=== PATIENT | male | born 1970 | race Asian ===

== ENCOUNTER → 2023-12-26 06:27 | Day surgery (SDC) | payer BC, SELFPAY ==
[2023-12-26 07:34] LABS: Glucose - Point of Care 116 mg/dl (70-99)
== END ==
LOC: GI 06:27
PROVIDERS: ATTENDING PHYSICIAN Internal Medicine Gastroenterology
DX: D12.2 Benign neoplasm of ascending colon (principal); R19.4 Change in bowel habit; K64.8 Other hemorrhoids
CPT/HCPCS: 45385; 88305; 82962

== ENCOUNTER 2024-09-01 20:55 | Inpatient (IN) | payer BC, SELFPAY ==
[2024-09-01 16:42] VITALS: BMI 21.3
[2024-09-01 16:52] VITALS: BP 144/87
[2024-09-01 17:08] LABS: % Basophils 0.3 % (0-2); % Eosinophils 1.2 % (0-6); % Immature Granulocytes 0.5 % (0-0.5); % Lymphocytes 16.3 % (20.5-51.1); % Monocytes 8.2 % (1.7-9.3); % Neutrophils 73.5 % (42.2-75.2); Absolute Eosinophils 0.1 10^3/uL (0-0.7); Absolute Immature Granulocytes 0.1 10^3/uL (0-0.05); Absolute Lymphocytes 1.8 10^3/uL (1.2-3.4); Absolute Monocytes 0.9 10^3/uL (0.1-0.6); Absolute Neutrophils 7.9 10^3/uL (1.4-6.5); Hematocrit 35.8 % (39.0-52.0); Hemoglobin 11.8 g/dL (13.0-18.0); Mean Corpuscular Hgb 31.3 pg (27.0-31.0); Mean Platelet Volume 9.6 fL (7.4-10.4); Nucleated Red Blood Cells % 0 % (-); Platelet Count 350 10^3/uL (130-400); Red Blood Cell Count 3.77 10^6/uL (4.70-6.10); Red Cell Dist. Width 12.1 % (11.5-14.5); White Blood Cell Count 10.8 10^3/uL (4.8-10.8)
[2024-09-01 17:34] LABS: ALT (SGPT) 38 U/L (0-50); AST (SGOT) 25 U/L (17-59); Albumin 4.9 g/dl (3.5-5.0); Alkaline Phosphatase 70 U/L (38-126); Blood Urea Nitrogen 20 mg/dl (9-20); Calcium 9.7 mg/dl (8.4-10.2); Carbon Dioxide 33 mmol/L (22-30); Glucose 93 mg/dl (70-99); Total Bilirubin 0.5 mg/dl (0.2-1.3); Total Protein 8.2 g/dl (6.3-8.2); eGFR > 60.00
[2024-09-01 17:51] LABS: Chloride 97 mmol/L (98-107); Potassium 4.5 mmol/L (3.5-5.1); Sodium 138 mmol/L (135-145)
[2024-09-01 19:08] VITALS: BP 154/80
--- NOTE | 2024-09-01 19:18 | ED.GENMED ---
History of Present Illness
General
Chief Complaint: Skin Problem
Source: patient and records
Time Seen by Provider: 09/01/24 18:44
History of Present Illness
History of Present Illness:
54-year-old male with past medical history of hypertension, hyperlipidemia, insulin-dependent diabetes and chronic peripheral neuropathy presenting to the ER at the request of his history instructor, Dr. Hurst, for evaluation and admission after he
started with a wound on the plantar surface of the right foot Saturday, has gotten acutely worse, more erythematous and painful. Patient went to the office today and was recommended to come to the ER for admission, IV antibiotics, further advanced
imaging and potential OR if needed. Patient states that his blood sugars have been under control recently with his last hemoglobin A1c being 6.5 about 2 months ago. He denies any fevers, chills, rigors and states pain at rest is tolerable.
Past History
Past History
ED Past Medical History: HTN, Hypercholesterolemia, IDDM, NIDDM and Other
ED Past Surgical History: Appendectomy
Patient has exhibited threatening behavior?: No
Social History
Tobacco: Former smoker
Alcohol: None
Drug: None
Personal:
Living: with family
Employment: Employed
Review of Systems
Review of Systems
All Other Systems: ROS reviewed and negative except as documented in HPI and ROS
Phy Exam
Physical Exam
Physical Exam:
GENERAL: Alert , in no apparent distress
EYE: conjunctiva clear
Head: Normocephalic atraumatic
NECK: Supple,
ENT: mmm.
LUNGS: no acute respiratory distress
NEUROLOGICAL: Alert and oriented
SKIN: Warm and dry, large dressing in place overlying the fourth toe. There is streaking erythema up the midfoot going towards the ankle along the lateral aspect of the foot. Easily palpable pedal and tibial pulse. Cap refill less than 2 seconds.
MUSCULOSKELETAL: well perfused.
PSYCH: Normal and appropriate interaction.
Scores
Heart Failure Risk
Heart Failure Risk Score: Not Applicable
Heart Score for Chest Pain Patients
STEMI patient?: Not applicable
Withdrawal Assessment of Alcohol
Withdrawal Assessment Completed?: Not applicable
Course
Orders/Labs/Results
Orders:
Orders
09/01/24 16:56
CR Foot - Right Min 3 Views Urgent
Comment:
Reason For Exam: infection/pain
09/01/24 16:59
C-Reactive Protein Urgent
Comment: ADD ON
Complete Blood Count/With Diff Urgent
Comprehensive Metabolic Panel Urgent
Erythrocyte Sed Rate Urgent
Comment: ADD ON
09/01/24 18:56
Add On- LAB Urgent
Tests Added?: ESR/CRP
09/01/24 19:04
Piperacillin/Tazo 3.375 Gram [Zosyn] 3.375 gram in 50 ml IV NOW
09/01/24 19:27
Blood Culture Q30M
EMELYN Source: Blood/Venous
Specimen Description:
Blood Culture Q30M
EMELYN Source: Blood/Venous
Specimen Description:
09/01/24 20:05
Vancomycin [Vancocin] 1,500 mg 0.9% Sodium Chloride 500 ml [Nss] 500 ml IV NOW
Abnormal Lab Results
09/01/24
16:59
RBC 3.77 L 10^6/uL
(4.70-6.10)
Hgb 11.8 L g/dL
(13.0-18.0)
Hct 35.8 L %
(39.0-52.0)
MCV 95.0 H fL
(80.0-94.0)
MCH 31.3 H pg
(27.0-31.0)
Abs Immat Gran (auto) 0.1 H 10^3/uL
(0-0.05)
Absolute Neuts (auto) 7.9 H 10^3/uL
(1.4-6.5)
Absolute Monos (auto) 0.9 H 10^3/uL
(0.1-0.6)
Lymphocytes % 16.3 L %
(20.5-51.1)
ESR 57 H mm/hour
(0-20)
Chloride 97 L mmol/L
(98-107)
Carbon Dioxide 33 H mmol/L
(22-30)
C-Reactive Protein 134.40 H mg/L
(0.0-10.00)
09/01/24 16:59
09/01/24 16:59
Vital Signs
Initial and Last Documented VS:
Initial Vital Signs
Temp Pulse Resp BP Pulse Ox
99.8 F 90 16 144/87 100
09/01/24 16:52 09/01/24 16:52 09/01/24 16:52 09/01/24 16:52 09/01/24 16:52
Last Documented Vital Signs
Temp Pulse Resp BP Pulse Ox
98.4 F 77 16 154/80 97
09/01/24 19:19 09/01/24 19:19 09/01/24 19:19 09/01/24 19:19 09/01/24 19:19
MDM/Problems Addressed
Differential Diagnosis Includes:
Cellulitis, osteomyelitis, necrotizing fasciitis
MDM/Problems Addressed:
54-year-old male presenting to the ER for evaluation of diabetic foot wound to the right foot, seen by podiatry and recommended to come to the ER ultimately for admission for IV antibiotics and further inpatient treatment. Labs, cultures and x-ray
ordered. Will notify hospitalist team for admission.
Chronic conditions affecting care: DM
*Radiology
Radiology exam reviewed: preliminary read by ED provider (No definitive osteomyelitis)
*Pulse Oximetry
Patient hypoxic: no
*Critical Care Note
Total Time (30-74mins, 75-104mins- exclusive of procedures): Not Applicable
Patient Management
Discussion with other providers: Hospitalist
Escalation/DeEscalation of care consider admission/obs:
Hospitalist team accepts for continued evaluation and treatment
ED Attending Note
-
Portions of this chart may have been created with voice recognition software.� Occasional wrong word or��sound alike� substitutions may have occurred due to the inherent limitations of voice recognition software.
Discharge Plan
Departure
Patient Disposition: Admit
Date of Disposition: 09/01/24
Time of Disposition: 19:18
Presentation/result/management discussed w/ accepting MD/DO: Hospitalist
Discharge Problem:
Diabetic foot ulcer
Prescriptions:
No Action
valacyclovir [Valtrex] 1,000 MG tablet
1,000 mg PO TID Qty: 21 0RF
insulin detemir U-100 [Levemir U-100 Insulin] 1,000 UNITS/10 ML solution
40 units SC BID Qty: 1 0RF
lisinopril 40 MG tablet
40 mg PO DAILY Qty: 30 0RF
hydrocodone-acetaminophen 1 TABLET tablet
1 tab PO Q4HPRN PRN (Reason: severe pain) Qty: 8 0RF
ondansetron 4 MG tablet,disintegrating
4 mg PO TIDPRN PRN (Reason: nausea/vomiting) Qty: 12 0RF
nirmatrelvir-ritonavir [Paxlovid] 10 DOSE/PACKET tablet
1 dose PO BID 5 Days Qty: 30 0RF
Rx Instructions:
Take Nirmatrelvir 300 mg (2 tabs) and Ritonavir 100 mg (1 tab) by mouth twice a day in AM and PM for 5 days.
Interventions
Interventions:
*Risk Screen - Suicide Last Done: 09/01/24 16:52
*General Assessment Last Done: 09/01/24 16:52
*Neglect/Abuse Screening Last Done: 09/01/24 16:52
Discharge Date and Time
Print Language: BURMESE
[2024-09-01 19:19] VITALS: BP 154/80
[2024-09-01] MEDS: ZOSYN 50 IV (19:29)
[2024-09-01 19:35] LABS: Erythrocyte Sed Rate 57 mm/hour (0-20)
--- NOTE | 2024-09-01 19:40 | HPS.HSE ---
Family Physician
-
Family Physician:
Chief Complaint
-
right 4th toe wound
History of Present Illness
Patient is a 54-year-old male with past medical history significant for hypertension, hyperlipidemia, DM II, neuropathy, and GERD who presented to [facility] for evaluation by recommendation of grid operator. Patient was seen by Dr. Hurst,
podiatry today for a new wound on right 4th toe, lateral side between 5th toe, it started on this past Saturday. Patient reports he has had worsening erythema, and pain. After being seen by grid operator it was recommended ED for evaluation and
admission for IV antibiotics, further imaging and potential need for OR. Patient states DM has been rather controlled and last known A1C 6.5. Patient denies any fever, chills, cough, shortness of breath, chest pain, nausea, vomiting, constipation,
diarrhea or urinary symptoms.
Medical History
Past Medical History
Past Medical History: Reports Other
Additional Past Medical History:
benign hypertension
hyperlipidemia
DM II
neuropathy
GERD
Past Surgical History: Reports Other
Additional Past Surgical History:
appendectomy
Social History
Tobacco: Former Smoker (quit 7 years ago, approximately 10 pack year history)
Alcohol: None
Drug: None
Personal:
Living: With Family
Employment: Employed
Family History
Family History: Not pertinent
Allergies / Home Medications
Allergies reflects when Allergies were last updated in [employer].
Home Medications with original date entered in [employer] [facility] [employer]
Allergy/Medication List:
Allergies
Allergy/AdvReac Type Severity Reaction Status Date / Time
No Known Allergies Allergy Verified 09/01/24 16:55
Home Medications
amitriptyline 10 mg tablet 10 mg PO HS 09/01/24
amitriptyline 10 mg tablet 20 mg PO HS 09/01/24
empagliflozin 25 mg tablet (Jardiance) 25 mg PO DAILY 09/01/24
ezetimibe 10 mg tablet 10 mg PO DAILY 09/01/24
lisinopril 40 mg tablet 20 mg PO DAILY 09/01/24
mecobalamin-levomefolate calcium-pyridoxal phos 2 mg-3 mg-35 mg tablet 1 tab PO BID 09/01/24
pregabalin 100 mg capsule 100 mg PO TID 09/01/24
rosuvastatin 40 mg tablet 40 mg PO DAILY 09/01/24
tirzepatide 7.5 mg/0.5 mL subcutaneous pen injector (Mounjaro) 7.5 mg SC QWEEK 09/01/24
Review of Systems
-
History Source: Patient
Constitutional: Reports No Symptoms
EENT: Reports No Symptoms
Respiratory: Reports No Symptoms
Cardiac: Reports No Symptoms
Abdomen/GI: Reports No Symptoms
: Reports No Symptoms
Musculoskeletal: Reports Other (right 4th toe, lateral side between 5th toe wound)
Skin: Reports No Symptoms
Neurological: Reports No Symptoms
Endocrine: Reports No Symptoms
Hematologic/Lymphatic: Reports No Symptoms
Psych: Reports No Symptoms
Physical Exam
Vital Signs
Vital Signs
Temp Pulse Resp BP Pulse Ox
98.4 F 77 16 154/80 97
09/01/24 19:19 09/01/24 19:19 09/01/24 19:19 09/01/24 19:19 09/01/24 19:19
Physical Exam
General: Well Developed, Well Nourished, No Apparent Distress, Comfortable and Conversant
HEENT: NormoCephalic, Moist mucous membranes, Atraumatic, Leach Conjunctivae, Nose Appears Normal and Ears Appear Normal
Respiratory: Clear and Non Labored Respirations
Cardiac: S1/S2 and Regular Rhythm; No Murmur, Rub or Gallop
Breast: Deferred by me
GI: Soft, Non Tender, Non Distended and Normal Bowel Sounds; No Organomegaly
Rectal: Deferred by Provider
Genito-urinary: Deferred by me
Musculoskeletal: No Clubbing, No Cyanosis and No Edema
Skin: Warm, IV/Catheter Site and Other (right 4th toe with wound lateral side between 4th and 5th toes, erythema streaking up dorsal side of mid foot towards ankle, pulses palpable); No Rash
Neuro: Awake, Alert, AO x 3 and Nonfocal/grossly intact
Psych: Calm and Intact Judgment/Insight
Laboratory Results
-
09/01/24 16:59
09/01/24 16:59
Laboratory Results
Total Bilirubin 0.5 mg/dl (0.2-1.3) 09/01/24 16:59
AST 25 U/L (17-59) 09/01/24 16:59
ALT 38 U/L (0-50) 09/01/24 16:59
Alkaline Phosphatase 70 U/L (38-126) 09/01/24 16:59
Data Reviewed
-
Diagnostic Radiology: Report Reviewed by me (Right foot: Mild diffuse soft tissue swelling of the right fourth digit. Minimal first MTP joint osteoarthritis. Mild bony demineralization Tiny plantar calcaneal spur)
Lab Data: Labs Reviewed by me
Impression/Plan
-
IMPRESSION/PLAN:
#right diabetic foot wound
right foot x-ray: Mild diffuse soft tissue swelling of the right fourth digit.
Minimal first MTP joint osteoarthritis.
Mild bony demineralization
Tiny plantar calcaneal spur
blood culture: pending
- Admit to med/surg
- IV antibiotics
- supportive care
- Consult podiatry
- Consult ID
- MRI in morning
#benign hypertension
- continue lisinopril
#hyperlipidemia
- continue rosuvastatin and Zetia
#DM II
- AccuCheck AC & HS
- SSI
- continue Jardiance
- continue Mounjaro at home
#neuropathy
- continue pregabalin
#GERD
Code status: Full code
DVT Prophylaxis: SCDs
--- NOTE | 2024-09-01 19:47 | W.PN.UPDATE ---
Update Note
Progress Note Update
Patient seen in conjunction with EDWARD. I agree with the findings on history and physical. I concur with assessment and plan listed otherwise.
This is a 54-year-old with past medical history of hypertension, currently wcl-lgljncv-[id number] diabetes who presents to the emergency department from podiatry clinic with infected fourth toe.
Patient reported that he had noticed some pain in the toe over the weekend. When he looked down it showed an open wound. Then he developed some redness that was extending up his foot. It ended well up below the ankle. Patient denies any fevers
or chills at home. He denies any nausea or vomiting. Reports that his glucose control has been maintained. Denied any prior history of food infection like such. He does have neuropathy.
He was seen in diabetic clinic today. Wound dressing was applied and patient was sent to the emergency department for further evaluation and IV antibiotics.
In the emergency department he was afebrile, blood pressure was stable at 150/80 with a pulse of 77. His x-ray shows no foreign body, there was no significant subcutaneous swelling. Cannot verify presence of periosteal or other findings consistent
with osteomyelitis. CBC was unremarkable. Electrolytes BUN/creatinine were all within the normal range. ESR was elevated at 57, CRP is pending.
Assessment and plan
Early diabetic foot ulcer with osteomyelitis is possible and has not been ruled out.
Admit to [facility]
Consult podiatry
MRI foot
Cultures of blood
Agree with vancomycin plus zosyn for now
sliding scale insulin
ID consult.
DVT PPx - lovenox sq
Code status - full code
[2024-09-01] MEDS: VANCOCIN 530 MG IV (20:44)
[2024-09-01 21:40] VITALS: BP 187/105; BMI 21.4
--- NOTE | 2024-09-01 22:11 | PHA.VAN.IN ---
Assessment
- Assessment
Renal Function: Appears elevated from baseline (10/29/20 BASELINE SCR: 0.7)
Concomitant Antimicrobials: ZOSYN
- Previous Dosing Experience
Previous Regimen: NONE
Plan
- Plan
Initial / Loading Dose: 1500MG
Maintenance Regimen: DOSING BY RANDOM LEVEL
Monitoring: RANDOM VANCOMYCIN LEVEL 09/02/24
Pharmacokinetics Vancomycin I
- -
Patient Age: 54
Patient Sex: Male
Vancomycin Day #: 1
Indication: Diabetic Foot
Requesting Provider: ROBERT
Height / Weight:
Height 5 ft 11 in
Actual Weight 69.513 kg
Pertinent Past Medical History: IDDM
- Vital Signs / Lab Results
Temp Pulse Resp BP Pulse Ox
97.4 F 90 18 187/105 100
09/01/24 21:40 09/01/24 21:40 09/01/24 21:40 09/01/24 21:40 09/01/24 21:40
Lab Results - Hematology
09/01/24
16:59
WBC 10.8
Lab Results - Chemistry
09/01/24
16:59
BUN 20
Creatinine 1.0
Albumin 4.9
[2024-09-02] VITALS: BP 187/105
[2024-09-02] MEDS: LOPRESSOR 2.5 MG IV (00:01)
[2024-09-02 01:30] VITALS: BP 161/89
[2024-09-02] MEDS: ZOSYN 50 IV ×5 (02:17→20:17)
[2024-09-02 03:30] VITALS: BP 187/105
--- NOTE | 2024-09-02 03:39 | PTCARENOTE ---
Pt admitted to floor. Assessed as per flow sheet. Wound to R 4th and 5th toes noted. Small purulent drainage noted to dressing. Area is brown/black. New dsg applied. JOY OPERATOR notified of hypertension. Lopressor given as per order. Discussed another dose
of lopressor with said JOY OPERATOR who DC'd the order. Discussed that pt may need a regularly scheduled PM dose of antihypertensive med. No s/s of distress assessed. Will continue to monitor.
[2024-09-02 05:49] LABS: Glucose - Point of Care 105 mg/dl (70-99)
[2024-09-02 06:00] VITALS: BMI 21.2
[2024-09-02 07:29] VITALS: BP 163/90
[2024-09-02 07:34] LABS: Hemoglobin 11.6 g/dL (13.0-18.0); Mean Corp Hgb Conc. 33.1 g/dL (33.0-37.0); Mean Corpuscular Hgb 31.2 pg (27.0-31.0); Mean Corpuscular Volume 94.1 fL (80.0-94.0); Mean Platelet Volume 9.9 fL (7.4-10.4); Platelet Count 329 10^3/uL (130-400); Red Blood Cell Count 3.72 10^6/uL (4.70-6.10); Red Cell Dist. Width 11.9 % (11.5-14.5); White Blood Cell Count 10.6 10^3/uL (4.8-10.8)
[2024-09-02] MEDS: LYRICA 100 MG PO ×3 (07:51→21:55)
[2024-09-02] MEDS: ZESTRIL 20 MG PO (07:52)
[2024-09-02] MEDS: CRESTOR 40 MG PO (07:52)
[2024-09-02] MEDS: ZETIA 10 MG PO (07:52)
[2024-09-02] MEDS: TYLENOL 650 MG PO ×3 (07:53→20:17)
[2024-09-02 08:02] LABS: Blood Urea Nitrogen 16 mg/dl (9-20); Calcium 9.3 mg/dl (8.4-10.2); Carbon Dioxide 29 mmol/L (22-30); Chloride 99 mmol/L (98-107); Estimated Creatinine Clearance 101 ml/min; Glucose 109 mg/dl (70-99); Potassium 4.4 mmol/L (3.5-5.1); Sodium 138 mmol/L (135-145); eGFR > 60.00
[2024-09-02 08:03] LABS: Vancomycin Random 8.2 ug/ml
--- NOTE | 2024-09-02 08:21 | PHA.VAN.FU ---
Vancomycin Assessment / Plan
- Assessment
Renal Function: Stable
WBC's are: WNL
In the past 24 hrs, patient has been: Afebrile
Concomitant Antimicrobials: piperacillin/tazobactam
- Assessment - Therapeutic Drug Monitoring
Random Level: 8.2 - drawn ~10.5H after 1500mg initial dose
- Dosing Plan
Adjust Regimen to: Vanc 1000mg Q12H - first dose now then 1800
New Regimen Predicts: AUC (490), Peak (31.7), Trough (12)
- Monitoring Plan
No level(s) ordered at this time: consider levels in next few days
- Follow Up
Pharmacy will continue to follow.
Vancomycin Follow UP
- -
Patient Age: 54
Patient Sex: Male
Vancomycin Day #: 2
Indication: Diabetic Foot
Requesting Provider: Steve Earl
Pertinent Antimicrobial Allergies:
NKDA
Height / Weight:
Height 5 ft 11 in
Actual Weight 68.765 kg
Pertinent Past Medical History: DM II
- Vital Signs / Lab Results
Temp Pulse Resp BP Pulse Ox
99.3 F 88 17 163/90 98
09/02/24 07:29 09/02/24 07:29 09/02/24 07:29 09/02/24 07:29 09/02/24 07:29
Lab Results - Hematology
09/01/24 09/02/24
16:59 07:11
WBC 10.8 10.6
Lab Results - Chemistry
09/01/24 09/02/24
16:59 07:11
BUN 20 16
Creatinine 1.0 0.8
Estimated Creat Clear 101
Albumin 4.9
Therapeutic Drug Monitoring
Random Vancomycin 8.2 ug/ml 09/02/24 07:11
[2024-09-02] MEDS: FARXIGA PO (08:56)
[2024-09-02 09:27] LABS: Glycohemoglobin (HgbA1c) 6.3 % (4.0-5.6)
[2024-09-02] MEDS: VANCOCIN 200 IV ×2 (10:25→17:44)
--- NOTE | 2024-09-02 10:44 | W.PN.HOSP.TC ---
Today's Communication/Plan
-
see pn
Assessment / Plan
Assessment / Plan
54M M with PMhx of HTN, HLD, DM, neuropathy sent by bench carpenter with new wound of the R 4th toe. Managed for diabetic wound rule out OM
A/P:
#R 4th digit wound
elevated ESR/CRP - follow on Abx for improvement - if OM proven
MRI R foot
Podiatry consult
ID consult
Bcx
VAnco/Zosyn
#DM type 2 with neuropathy
Insulin SS, AccuCheck and DM diet
#HLD
#Essential HTN
Cont home meds
DVT ppx lovenox
Full code
I have spent at least 58min reviewing chart, test results, communication with consultants and direct patient care
Anticipated Discharge: > 48 hours
Subjective/Interval History
-
Date of Service: September 02, 2024
Objective Data
-
Labs:
Laboratory Results
09/02/24
07:11
WBC 10.6
Hgb 11.6 L
Hct 35.0 L
Plt Count 329
Sodium 138
Potassium 4.4
Chloride 99
Carbon Dioxide 29
BUN 16
Creatinine 0.8
Glucose 109 H
Calcium 9.3
Vital Signs:
Vital Signs
Temp Pulse Resp BP Pulse Ox
99.3 F 88 17 163/90 98
09/02/24 07:29 09/02/24 07:52 09/02/24 07:29 09/02/24 07:52 09/02/24 07:29
I&O
09/01/24 09/02/24 09/03/24
06:59 06:59 06:59
Intake Total 170 / 170
Balance 170 / 170
Review of Systems
-
History Source: Patient
All other systems: Reviewed and negative
Physical Exam
-
General: No Apparent Distress
HEENT: Normocephalic
Cardiac: Regular Rhythm
Neuro: Awake, Alert, Oriented and AO x 3
Psych: Calm
[2024-09-02 12:22] LABS: Glucose - Point of Care 104 mg/dl (70-99)
--- NOTE | 2024-09-02 13:44 | CON.MD ---
Consultation - Medical
-
CC: Right 4th toe wound with cellulitis with Suspected 4th toe osteomyelitis.
HPI: Patient is a 54-year-old male with past medical history significant for hypertension, hyperlipidemia, DM II, neuropathy, and GERD. He was seen by me yesterday in the office as an initial evaluation. I recommended admission [place] [facility] for
evaluation and admission for IV antibiotics, further imaging and potential need for OR. Patient states that the wound started this past Saturday and the redness drainage and swelling progressed quickly. Patient reports he has had worsening
erythema, and pain since onset Patient states DM has been rather controlled and last known A1C 6.5. Patient denies any fever, chills, cough, shortness of breath, chest pain, nausea, vomiting, constipation, diarrhea or urinary symptoms.
Past Medical History: benign hypertension, hyperlipidemia, DM II, neuropathy, GERD
Past Surgical History: appendectomy
Social History: Tobacco: Former Smoker (quit 7 years ago, approximately 10 pack year history), Alcohol: None, Drug: None, Personal: , Living: With Family, Employment: Employed
Family History: Not pertinent
Allergies
Allergy/AdvReac Type Severity Reaction Status Date / Time
No Known Allergies Allergy Verified 09/01/24 16:55
Home Medications
amitriptyline 10 mg tablet 10 mg PO HS 09/01/24
amitriptyline 10 mg tablet 20 mg PO HS 09/01/24
empagliflozin 25 mg tablet (Jardiance) 25 mg PO DAILY 09/01/24
ezetimibe 10 mg tablet 10 mg PO DAILY 09/01/24
lisinopril 40 mg tablet 20 mg PO DAILY 09/01/24
mecobalamin-levomefolate calcium-pyridoxal phos 2 mg-3 mg-35 mg tablet 1 tab PO BID 09/01/24
pregabalin 100 mg capsule 100 mg PO TID 09/01/24
rosuvastatin 40 mg tablet 40 mg PO DAILY 09/01/24
tirzepatide 7.5 mg/0.5 mL subcutaneous pen injector (Mounjaro) 7.5 mg SC QWEEK 09/01/24
Physical Exam: Right foot with palpable pulses, foot feel perfused, there is a dark eschar on the lateral aspect of the 4th digit that measures 1.2 cm in diameter. No purulence, no fluctuance. No tunneling, undermining probing or sinus tract
formation. Minimal serous drainage from the edges. There is erythema extending from the toe to the dorsal midfoot (improvement noted from yesterday's exam)
Assessment:
Right foot eschar with cellulitis R/O possible osteomyelitis of the 4th toe
Type 2 Diabetes Mellitus with neuropathy
Plan:
JAVI/PVR LE pending
MRI Pending
Adaptec and DSD to the 4th toe
Continue IV antibiotics - Vanco/zosyn
Blood cultures pending
ID consult pending
Await MRI to R/O osteomyelitis of 4th toe. Discusse possibility of toe amputation if the MRI is positive.
--- NOTE | 2024-09-02 14:15 | WOUNDNOTE ---
[facility] RN note: Patient admitted with Right 4th toe wound with cellulitis with Suspected 4th toe osteomyelitis.
See H&P for complete history.
PMH: hypertension, hyperlipidemia, DM II, neuropathy, and GERD.
Wound Location and type/assessment: Patient admitted with right 4th toe wound with eschar. Patient reports pain on plantar aspect of foot when applying pressure. Dorsum of foot with erythema. Heels intact. Patient turns easily in bed. Podiatry
following.
Appetite: Good
Pressure redistribution devices in place: [employer] Air. Patient turns easily bed and ambulates.
Plan: Awaiting MRI. Podiatry following. Wound cleaned with Vashe and adaptic and 4x4 applied.
Will confirm orders with hospitalist and update nurse. Will follow peripherally.
--- NOTE | 2024-09-02 14:17 | WOUNDNOTE ---
RIGHT 4TH TOE
--- NOTE | 2024-09-02 14:18 | WOUNDNOTE ---
RIGHT DORSAL FOOT
--- NOTE | 2024-09-02 14:18 | WOUNDNOTE ---
RIGHT PLANTAR FOOT
--- NOTE | 2024-09-02 14:22 | CON.VAS ---
Consultation
Consultation Request
Date/Time Consultation Performed: 09/02/24
Requesting Provider: Hospitalist
Performing Provider: Mayra Bajwa, WEB SITE ADMINISTRATOR-C for Teddy Kulkarni MD
Reason for Consultation: Right foot fourth digit wound with concern for osteomyelitis and PAD
Medical History
-
Chief Complaint: Right foot fourth digit wound
History of Present Illness:
This is a 54-year-old male with significant past medical history for GERD, hypertension, diabetes and neuropathy who presented to [facility] on 09/01/2024 from encouragement of drawing tracer Dr. Hurst for worsening right foot fourth digit
lateral side dry gangrene wound. Patient endorses that wound was discovered roughly 7 days ago when he began experiencing pain at the bottom of his foot, he does not recall an injury or trauma. When wound began to worsen with increased pain and
redness patient sought evaluation from his drawing tracer who recommended ED. As part of the workup arterial ultrasound with AJVI/TBI was obtained demonstrating moderate reduced TBI at 0.55 and stenosis at popliteal artery, prompting vascular
consultation. Patient denies past vascular surgical intervention. He offers no other complaints.
Past Medical History
Past Medical History: GERD, HTN and Other (Diabetes, neuropathy)
Past Surgical History: Appendectomy
Social History
Tobacco: Former Smoker (quit 7 years ago, approximately 10 pack year history)
Alcohol: None
Drug: None
Personal:
Living: With Family
Allergies / Home Medications
Allergy/AdvReac Type Severity Reaction Status Date / Time
No Known Allergies Allergy Verified 09/01/24 16:55
�Medication �Instructions �Recorded �Confirmed �Type
amitriptyline 10 mg tablet 10 mg PO HS 09/01/24 09/01/24 History
amitriptyline 10 mg tablet 20 mg PO HS 09/01/24 09/01/24 History
empagliflozin 25 mg tablet 25 mg PO DAILY 09/01/24 09/01/24 History
(Jardiance)
ezetimibe 10 mg tablet 10 mg PO DAILY 09/01/24 09/01/24 History
lisinopril 40 mg tablet 20 mg PO DAILY 09/01/24 09/01/24 History
mecobalamin-levomefolate 1 tab PO BID 09/01/24 09/01/24 History
calcium-pyridoxal phos 2 mg-3
mg-35 mg tablet
pregabalin 100 mg capsule 100 mg PO TID 09/01/24 09/01/24 History
rosuvastatin 40 mg tablet 40 mg PO DAILY 09/01/24 09/01/24 History
tirzepatide 7.5 mg/0.5 mL 7.5 mg SC QWEEK 09/01/24 09/01/24 History
subcutaneous pen injector
(Lucio)
Review of Systems
-
History Source: Patient
Constitutional: Reports No Symptoms
EENT: Reports No Symptoms
Respiratory: Reports No Symptoms
Cardiac: Reports No Symptoms
Abdomen/GI: Reports No Symptoms
: Reports No Symptoms
Musculoskeletal: Reports No Symptoms
Skin: Reports Other (Right fourth digit lateral wound)
Neurological: Reports No Symptoms
Endocrine: Reports No Symptoms
Physical Exam
Vital Signs
Temp Pulse Resp BP Pulse Ox
99.3 F 88 17 163/90 98
09/02/24 07:29 09/02/24 07:52 09/02/24 07:29 09/02/24 07:52 09/02/24 07:29
Lab Results
09/02/24 07:11
09/02/24 07:11
Physical Exam
General: No Apparent Distress and Comfortable
HEENT: Normocephalic, Anicteric and Atraumatic
Respiratory: Non Labored Respirations
Cardiac: Negative JVD
GI: Soft, Non Tender and Non Distended
Musculoskeletal: No Edema
Skin: Other ( Right fourth toe laterally with dry gangrenous oval lesion)
Neuro: AO x 3
Pulses: Bilateral Femoral: +2, Bilateral Popliteal: +2, Bilateral Dorsalis Pedis: +1 and Bilateral Posterior Tibial: +1
Assessment / Plan
-
Assessment: 54-year-old male with right foot fourth digit wound and peripheral arterial disease as evidenced by decreased JAVI/TBI and arterial ultrasound with stenosis of popliteal and SFA
Plan:
Tentative OR plan for right lower extremity angiogram tomorrow 09/03/[address] Dr. Kulkarni at bedside reviewed risk versus benefits, clinical indications, and procedure in detail with patient who agrees to proceed and verbalized
understanding.
N.p.o. at midnight
--- NOTE | 2024-09-02 14:49 | W.PN.UPDATE ---
Update Note
Progress Note Update
Seen and evaluated with vascular nurse practitioners. Full consultation to follow. Briefly 54-year-old male with history of diabetes and prior tobacco use (smoked up till about 7 years ago a pack would last 3 days). No prior lower extremity
revascularizations or prior lower extremity tissue loss episodes. Presented with about 7 days of right fourth toe ulceration/dry lesion. Worsening over the course of the week with some increasing redness of the foot. Seen by Dr. Hurst and
referred to the hospital for further workup and evaluation.
On exam/he is awake and alert. Head is normocephalic and atraumatic. Eyes are anicteric. Neck is soft without jugular venous distention. Breathing is unlabored. 1+/2+ palpable bilateral radial pulses. Abdomen is soft, nondistended, nontender.
Lower extremity with 2+ femoral and popliteal pulses palpable bilaterally. Weakly if at all palpable bilateral DP and PT pulses. Feet are both warm. Right fourth toe laterally with dry gangrenous oval lesion measuring approximately 2 cm in length
by 1 cm in width. Mild erythema of the toe and extending onto the lateral foot. No crepitus.
Noninvasive studies reviewed. ABIs are within normal limits bilaterally. TBIs are mild to moderately reduced. Right popliteal artery velocity elevation of 461 cm/s with velocity ratio 4.75 suggestive of greater than 75% stenosis. On the left
side similar finding with an SFA stenosis.
Plan/ CLTI (chronic limb threatening ischemia) with tissue loss R 4th toe. Discussed with patient my recommendation at this point for angiography based on findings. Discussed technical aspects of the procedure of angiography. Discussed
anticipated outcomes/recovery. Discussed scenarios of the angiogram to be the following: #1 successful endovascular revascularization, #2 need for staged surgical intervention or bypass, #3 not unreconstructable small vessel or distal disease with
persistent limb threat. Discussed risks of the procedure including but not limited to bleeding, arterial injury/worsened or acute limb ischemia, renal failure. He understands all these things and wishes to proceed. Plan right lower extremity
arteriogram with possible angioplasty/stent tomorrow. Communicated plan to hospitalist.
[2024-09-02 15:03] VITALS: BP 141/79
[2024-09-02 16:35] LABS: Glucose - Point of Care 153 mg/dl (70-99)
[2024-09-02] MEDS: LOVENOX 40 MG SC (17:44)
--- NOTE | 2024-09-02 17:44 | CON.ID ---
Consultation
-
Date/Time Consultation Requested: 09/01/24 21:34
Date/Time Consultation Performed: 09/02/24 17:44
Requesting Provider: Mady RHODES
Performing Provider: Dr Katz
Reason for Consultation: possible osteomyelitis
Chief Complaint / Past History
Chief Complaint
Right 4th toe wound with cellulitis with Suspected 4th toe osteomyelitis.
History of Present Illness
Mr Isabel is a 54-year-old male with history of DM II. Developed a wound this past Saturday then redness drainage and swelling progressed quickly. Patient reports he has had worsening erythema, and pain since onset. Wound has become black. Patient
denies any fever, chills, cough, shortness of breath, chest pain, nausea, vomiting, constipation, diarrhea or urinary symptoms.
Since arrival here he has been afebrile, bp stable, wbc 10.6, hgb 11.6, plt 329, no L shift, cr 0.8 a1c 6.3, lfts wnl, arterial US LE with JAVI:notable for multiphasic wave forms, foot xray: soft tissue swelling right 4th digit, blood cultures no
growth to date, mrsa screen in progress, seen by vascular surgery and panned for revascularization. Currently on vancomycin and zosyn.
Past History
Additional Past Medical History:
benign hypertension
hyperlipidemia
DM II
neuropathy
GERD
Additional Past Surgical History:
appendectomy
Allergy History:
No Known Allergies Allergy (Verified 09/01/24 16:55)
Medications Reviewed: Yes
Social History
Tobacco: Former Smoker
Alcohol: None
Drug: None
Family History
Family History: Not Pertinent
Review of Systems
Review of Systems
General: Negative Fever or Chills
All systems: All other systems were reviewed and were negative
Vital Signs
Temp Pulse Resp BP Pulse Ox
98.9 F 91 17 141/79 99
09/02/24 15:03 09/02/24 15:03 09/02/24 15:03 09/02/24 15:03 09/02/24 15:03
Physical Exam
Physical Exam
Constitutional: No Acute Distress
Cardiovascular: Regular Rate and S1/S2; Negative Murmur or Rub
Pulmonary: Clear and Symmetric; Negative Wheezes, Rales or Rhonchi
Gastrointestinal: Soft, Non Tender, Non Distended and Normal Bowel Sounds
Skin: Warm and Dry; Negative Rash or Jaundice
Wound: Other (right 4th toe wound with eschar and surrounding erythema, putrid odor)
Lab / Diagnostic Study Results
09/02/24 07:11
09/02/24 07:11
Abs Immat Gran (auto) 0.1 10^3/uL (0-0.05) H 09/01/24 16:59
Absolute Neuts (auto) 7.9 10^3/uL (1.4-6.5) H 09/01/24 16:59
Absolute Lymphs (auto) 1.8 10^3/uL (1.2-3.4) 09/01/24 16:59
Absolute Monos (auto) 0.9 10^3/uL (0.1-0.6) H 09/01/24 16:59
Absolute Basos (auto) 0.0 10^3/uL (0-0.2) 09/01/24 16:59
Immature Gran % 0.5 % (0-0.5) 09/01/24 16:59
Neutrophils % 73.5 % (42.2-75.2) 09/01/24 16:59
Lymphocytes % 16.3 % (20.5-51.1) L 09/01/24 16:59
Monocytes % 8.2 % (1.7-9.3) 09/01/24 16:59
Eosinophils % 1.2 % (0-6) 09/01/24 16:59
Basophils % 0.3 % (0-2) 09/01/24 16:59
ESR 57 mm/hour (0-20) H 09/01/24 16:59
C-Reactive Protein 134.40 mg/L (0.0-10.00) H 09/01/24 16:59
Microbiology Results
Micro:
09/01/24 22:07 MRSA Screen - Pending
Nose
09/01/24 19:27 Blood Culture - Pending
Blood/Venous
09/01/24 19:27 Blood Culture - Pending
Blood/Venous
Assessment / Plan
Ischemic/Diabetic Foot Infection
DM2 - controlled
History of smoking
- blood cultures x2 in progress
- planned for revascularization
- await MRI
- agree with vancomycin and zosyn at this time
- follow clinically
[2024-09-02 21:54] LABS: Glucose - Point of Care 135 mg/dl (70-99)
[2024-09-02] MEDS: ELAVIL 30 MG PO (21:54)
[2024-09-02 23:19] VITALS: BP 150/75
[2024-09-03] VITALS (14 sets, daily range): BP systolic 112–194; BP diastolic 67–108
[2024-09-03] MEDS: TYLENOL 650 MG PO ×2 (04:20→23:08)
[2024-09-03] MEDS: VANCOCIN 200 IV (05:25)
[2024-09-03 06:20] LABS: Glucose - Point of Care 159 mg/dl (70-99)
[2024-09-03] MEDS: NOVOLOG FLEXPEN-LOW RESISTANCE SC ×2 (06:32→12:38)
[2024-09-03 06:48] LABS: % Basophils 0.3 % (0-2); % Eosinophils 1.1 % (0-6); % Immature Granulocytes 0.8 % (0-0.5); % Monocytes 8.9 % (1.7-9.3); % Neutrophils 72.9 % (42.2-75.2); Absolute Eosinophils 0.1 10^3/uL (0-0.7); Absolute Immature Granulocytes 0.1 10^3/uL (0-0.05); Absolute Lymphocytes 1.8 10^3/uL (1.2-3.4); Hematocrit 33.8 % (39.0-52.0); Mean Corp Hgb Conc. 32.5 g/dL (33.0-37.0); Mean Corpuscular Hgb 30.7 pg (27.0-31.0); Mean Corpuscular Volume 94.4 fL (80.0-94.0); Mean Platelet Volume 9.7 fL (7.4-10.4); Nucleated Red Blood Cells % 0 % (-); Platelet Count 338 10^3/uL (130-400); Red Blood Cell Count 3.58 10^6/uL (4.70-6.10); Red Cell Dist. Width 11.9 % (11.5-14.5)
[2024-09-03 06:57] LABS: INR 0.96; PT 13.3 Sec (11.4-14.6)
[2024-09-03 06:58] LABS: APTT 41.7 Sec (23.4-35.0)
[2024-09-03 07:20] LABS: ALT (SGPT) 31 U/L (0-50); AST (SGOT) 21 U/L (17-59); Albumin 3.5 g/dl (3.5-5.0); Alkaline Phosphatase 80 U/L (38-126); Blood Urea Nitrogen 20 mg/dl (9-20); Carbon Dioxide 33 mmol/L (22-30); Chloride 99 mmol/L (98-107); Estimated Creatinine Clearance 90 ml/min; Glucose 157 mg/dl (70-99); Potassium 4.2 mmol/L (3.5-5.1); Sodium 137 mmol/L (135-145); Total Bilirubin 0.4 mg/dl (0.2-1.3); Total Protein 6.5 g/dl (6.3-8.2); eGFR > 60.00
--- NOTE | 2024-09-03 08:00 | PTCARENOTE ---
Report given to analyst microbiology lab. Sera hare. Pt sent in bed.
[2024-09-03] MEDS: ZOSYN 50 IV (08:06)
--- NOTE | 2024-09-03 08:59 | PTCARENOTE ---
Patient received in cath holding area at 0823 via bed. Patient awake and alert. Right toe wound/right foot redness. Patient prepped for OR. Bilateral groin shaved. Bilateral PT and DP doppler pulses. Awaiting anesthesiologist and Dr. Kulkarni to see
patient prior to procedure.
--- NOTE | 2024-09-03 09:11 | W.SUR.PREOP ---
Pre-Operative Surgical Note
-
I have examined this patient prior to the performance of the scheduled procedure.
The patient's condition is unchanged from the time of the current History and
Physical and the patient is able to undergo the scheduled procedure.
[2024-09-03] MEDS: CRESTOR PO (09:14)
[2024-09-03] MEDS: ZETIA PO (09:15)
[2024-09-03] MEDS: FARXIGA PO (09:15)
[2024-09-03] MEDS: LYRICA PO (09:15)
[2024-09-03] MEDS: ZESTRIL PO (09:15)
--- NOTE | 2024-09-03 10:39 | W.PN.HOSP.TC ---
Today's Communication/Plan
-
switch to unasyn
pending further ID and VascSx mgmt
Assessment / Plan
Assessment / Plan
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 Managed for diabetic wound. MRI showed no definite signs of OM. US arterial of LE was concerning for significant PAD, patient had angio with revasc on
09/03/24
A/P:
#R 4th digit wound
elevated ESR/CRP - follow on Abx for improvement
MRI R foot
Podiatry consult
ID consult
Bcx NTD
VAnco/Zosyn switched to Unasyn since MRSA screen neg
#Chronic limb threatening ischemia right lower extremity
s/p revasc by VascSx on 09/03/24
cont DAPT
unfortunately poor reconstitution of flow
#DM type 2 with neuropathy
Insulin SS, AccuCheck and DM diet
#HLD
#Essential HTN
Cont home meds
DVT ppx lovenox
Full code
I have spent at least 38min reviewing chart, test results, communication with consultants and direct patient care
Anticipated Discharge: > 48 hours
Subjective/Interval History
-
Date of Service: September 03, 2024
Objective Data
-
Labs:
Laboratory Results
09/03/24
06:16
WBC 11.0 H
Hgb 11.0 L
Hct 33.8 L
Plt Count 338
PT 13.3
INR 0.96
APTT 41.7 H
Sodium 137
Potassium 4.2
Chloride 99
Carbon Dioxide 33 H
BUN 20
Creatinine 0.9
Glucose 157 H
Calcium 9.0
Total Bilirubin 0.4
AST 21
ALT 31
Alkaline Phosphatase 80
Vital Signs:
Vital Signs
Temp Pulse Resp BP Pulse Ox
99.4 F 85 16 128/67 96
09/03/24 07:41 09/03/24 07:41 09/03/24 07:41 09/03/24 07:41 09/03/24 07:41
I&O
09/02/24 09/03/24 09/04/24
06:59 06:59 06:59
Intake Total 170 / 170 490 / 490
Balance 170 / 170 490 / 490
Review of Systems
-
History Source: Patient
All other systems: Reviewed and negative
Physical Exam
-
General: No Apparent Distress
HEENT: Normocephalic
Respiratory: Clear to Auscultation
Cardiac: Regular Rhythm
GI: Soft, Nontender and Nondistended
Neuro: Awake, Alert, Oriented and AO x 3
Psych: Calm
--- NOTE | 2024-09-03 11:48 | W.SUR.POST ---
Surgical Immediate Post Op
Note
Pre Op Diagnosis: Nonhealing right toe wound
Post Op Diagnosis: same
Procedure Performed: RLE arteriogram, right popliteal balloon angioplasty, right PT balloon angioplasty
Primary Surgeon: Shad
Anesthesia: local and sedation
Estimated Blood Loss: <2cc
Fluids: see anesthesia flow sheet
Drains/Shunts: none
Specimens/Cultures: none
Doppler/Duplex/Angio (Y/N): Y
Complications: None
Operative Findings: +DP signal
[2024-09-03 12:07] LABS: Glucose - Point of Care 124 mg/dl (70-99)
--- NOTE | 2024-09-03 12:30 | OR.RPT ---
Operative Report
Operative Report
PROCEDURE DATE: 09/03/2024
Preoperative diagnosis: Chronic limb threatening ischemia right lower extremity.
Postoperative diagnosis: Same
Procedure:
1. Duplex assisted left common femoral cannulation.
2. Aortogram and pelvic angiogram.
3. Selective catheterization of right posterior tibial artery via left common femoral artery puncture.
4. Balloon angioplasty with drug-coated balloon of severe behind the knee popliteal artery stenosis with Bard Lutonix 5 mm x 6 cm drug-coated balloon.
5. Attempted recanalization of occluded distal posterior tibial artery.
6. Balloon angioplasty of dissection and left posterior tibial artery.
7. Left femoral angiogram and Perclose percutaneous suture closure left common femoral artery.
8. Supervision and interpretation.
Surgeon: Shad
Marine Oiler: None
Complications: None
Anesthesia: Local, sedation
Fluoroscopy:
24 min
55 mGy
10 Gy.cm2
Indications for procedure:
Chronic limb threatening ischemia with gangrene right fourth toe. Risk/benefit/alternatives of angiography report discussed. Patient understood all wished to proceed.
Description of procedure:
Patient was identified, brought to the operating room. Placed on the table in the supine position. After the adequate administration catheterization of right posterior tibial artery via left common femoral artery puncture. Anesthesia, the patient
was prepped and draped in the standard surgical fashion. A standard preoperative timeout was undertaken and everybody was in agreement with the plan.
The left common femoral artery was accessed with a micropuncture kit under direct duplex ultrasound guidance. A 5 [place] sheath was then advanced over a 0.035 inch wire, and a fields's hook catheter was advanced into the abdominal aorta.
Aortogram and pelvic angiogram was obtained. Findings as follows:
Infrarenal aorta: [Patent with no significant stenosis]
Right common iliac artery: [Patent with no significant stenosis]
Right external iliac artery:[Patent with no significant stenosis]
Left common iliac artery:[Patent with no significant stenosis]
Left external iliac artery:[Patent with no significant stenosis]
Using a floppy angled hydrophilic wire, the right common femoral artery was cannulated and the catheter was advanced. Right lower extremity arteriogram was obtained. Findings as follows:
Common femoral artery: Patent with no significant stenosis.
Profunda femoris artery: Patent with mild to moderate stenosis after the first branch and luminal irregularities diffusely thereafter.
Superficial femoral artery: Patent with diffuse luminal irregularities and areas of mild stenoses, but no hemodynamically significant appearing stenosie.
Popliteal artery: Patent above the knee popliteal artery with no significant stenosis. The behind the knee popliteal artery had luminal irregularities then resulting in a severe stenosis focally just behind the knee. Extended slightly below the
knee and then the artery more normalized. Proximally there is a three-vessel runoff. All 3 runoff vessels ran down towards the ankle. The posterior tibial artery in its mid to distal third had an area of severe irregularity or occlusion with
corkscrew collateral focally. The anterior tibial artery was the more dominant runoff vessel with a brisk is flow and ran to the ankle and just onto the foot but then occluded. The dorsalis pedis itself was not well-seen on the foot. Posterior
tibial artery occluded at the ankle and gave rise to collaterals which then reconstituted the plantar branches. Peroneal artery became very diminutive around the ankle and gave rise to a single collateral. This was a small wispy collateral.
At this point I selectively cannulated the superficial femoral artery and then exchanged for a Storq wire and an up and over 6 [place] sheath. The patient was given a total of 6000 units of intravenous heparin. Next under roadmap assisted guidance
using a flopping of hydrophilic wire and a CXI catheter was able to traverse the area of severe popliteal artery stenosis and then advance my wire into the peroneal artery. I then exchanged for a Storq wire after advancing the catheter. I then
performed prolonged inflation balloon angioplasty of the popliteal artery behind the knee severe stenosis with a Bard Lutonix drug-coated balloon 5 mm x 6 cm. Completion angiogram demonstrated excellent result with no residual stenosis. At this
point I selectively cannulated the posterior tibial artery under roadmap assisted guidance using a flopping of hydrophilic wire and a CXI catheter. Once I did this I created a new roadmap and noted the severe stenosis or what appeared to be more
likely a focal occlusion with corkscrew collateral in the mid segment of the posterior tibial artery. I then exchanged for a 0.014 inch system with a 0.014 inch steerable wire and a 2.6 [place] CXI catheter. I tried to get through the posterior
tibial artery mid segment severe stenosis or occlusion but my wire kept getting into a collateral. As as about abandon, I advanced my catheter over the wire just to the point of occlusion and then was able to get my wire down. And then I was able
to advance my catheter through. However the wire then seem to be going a slightly apparent direction. This raise concern that I had dissected the artery here. That is what it appeared to have been. Angiographically that is what it look like at
this point. Therefore I then withdrew my catheter back. I then tried to readvanced my wire was able to nicely saline through in the true lumen down to the ankle of the posterior tibial artery. Now that I got down to the ankle I passed my catheter
and confirmed as in the true lumen. However the distal collateral filling was weaker now. However I felt this may be due to the inflow dissection now. I therefore then performed balloon angioplasty long segment of the posterior tibial artery to
tack the dissection flap using a 2.5 mm x 20 cm balloon. Completion angiogram now demonstrated no significant residual stenosis at the point of the dissection but the phalanx of the posterior tibial artery was very low likely secondary to very poor
outflow distally. I could not see filling through the collaterals distally. I therefore now tried to cross the very distal chronic occlusion of the posterior tibial artery to establish better outflow. I roadmap of the plantar branches so that I
could see if I could wire through. However despite multiple attempts I could not get any wire down into through that occlusion. At this point I felt that there is not much else I can do for the posterior tibial artery. There is nothing I could do
distally for the anterior tibial artery is a chronically occluded and there is no reconstituted dorsalis pedis artery. Therefore I felt nothing really left to do endovascularly here. I therefore then exchanged back for a Bureaux A Partager wire and then
performed angiogram after withdrawing my sheath of the left distal external iliac/common femoral artery. This demonstrated good puncture in the left common femoral artery. I therefore then used an [place] Vodkase percutaneous suture closure.
Hemostasis was fully achieved. Patient tolerated the procedure well. Upon completion he had a good dopplerable distal FABIOLA/proximal DP signal. He had a posterior tibial signal just above the ankle as well.
[2024-09-03] MEDS: ASPIRIN 325 MG PO (12:41)
[2024-09-03] MEDS: PLAVIX 300 MG PO (12:41)
[2024-09-03] MEDS: NSS 1000 IV (13:08)
--- NOTE | 2024-09-03 13:34 | PTCARENOTE ---
Pt returned from PACU, report received that @ 15min VS and site checks completed, will resume at @ Q 30min x2 according to orders. Pt to remain bedrest for 6 hrs until 1750. Head of bed allowed to 30 degrees after 2hrs, which would be 1350. Pt aware
of restrictions. Pt AOx3, slightly drowsy. Good sensation on danitza LE, + Doppler pulses DP and PT. R foot redness noted w/ 4th toe purple in appearance, Dr An at bedside to assess pt at this time, states the foot is similar in appearance than
yesterday. L groin dressing c/d/i, no hematoma present. VSS w/ BP elevated 175/103 HR 99, will administer antihypertensives that were missed from this AM. Pt denies pain.
[2024-09-03] MEDS: ZESTRIL 20 MG PO (13:57)
[2024-09-03] MEDS: UNASYN IV ×2 (14:08→22:52)
--- NOTE | 2024-09-03 14:54 | CM ---
Met with patient to obtain information for assessment. Patient stated that he lives with his daughter and in a two story home with two steps to enter. He is independent with his ADLs, personal care, dressing and bathing. 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 He drives and can get himself to all of his appointments and does his own shopping. He is employed. He denied any DME in his home.
He has never had VN services.
He has not been to a SNF.
Patient has a prescription plan and uses, [facility] in [place] for all of his medications.
Patient's PCP is, Salvador Paz.
Patient stated that he would like to go home when medically stable and does not feel that he will have any needs at discharge.
Plan: Case management will continue to follow and assist with discharge planning. Home no needs.
[2024-09-03] MEDS: LYRICA 100 MG PO ×2 (15:55→22:47)
[2024-09-03] MEDS: LOVENOX 40 MG SC (17:41)
[2024-09-03 18:09] LABS: Glucose - Point of Care 262 mg/dl (70-99)
[2024-09-03] MEDS: NOVOLOG FLEXPEN-LOW RESISTANCE 3 UNITS SC (18:13)
[2024-09-03 21:43] LABS: Glucose - Point of Care 249 mg/dl (70-99)
[2024-09-03] MEDS: ELAVIL 30 MG PO (22:47)
[2024-09-04] MEDS: NOVOLOG FLEXPEN-LOW RESISTANCE SC ×2 (00:06→11:34)
[2024-09-04] MEDS: UNASYN IV ×4 (03:19→23:19)
[2024-09-04 03:30] VITALS: BP 132/75
[2024-09-04 06:17] LABS: % Eosinophils 0.2 % (0-6); % Immature Granulocytes 0.3 % (0-0.5); % Lymphocytes 13.3 % (20.5-51.1); % Monocytes 10.1 % (1.7-9.3); % Neutrophils 76.1 % (42.2-75.2); Absolute Lymphocytes 1.5 10^3/uL (1.2-3.4); Absolute Monocytes 1.1 10^3/uL (0.1-0.6); Absolute Neutrophils 8.4 10^3/uL (1.4-6.5); Hematocrit 31.6 % (39.0-52.0); Hemoglobin 10.7 g/dL (13.0-18.0); Mean Corp Hgb Conc. 33.9 g/dL (33.0-37.0); Mean Corpuscular Hgb 31.6 pg (27.0-31.0); Mean Corpuscular Volume 93.2 fL (80.0-94.0); Mean Platelet Volume 9.2 fL (7.4-10.4); Nucleated Red Blood Cells % 0 % (-); Platelet Count 324 10^3/uL (130-400); Red Blood Cell Count 3.39 10^6/uL (4.70-6.10); Red Cell Dist. Width 11.8 % (11.5-14.5)
[2024-09-04 06:44] LABS: ALT (SGPT) 33 U/L (0-50); AST (SGOT) 21 U/L (17-59); Albumin 3.7 g/dl (3.5-5.0); Alkaline Phosphatase 77 U/L (38-126); Blood Urea Nitrogen 21 mg/dl (9-20); Calcium 8.9 mg/dl (8.4-10.2); Carbon Dioxide 27 mmol/L (22-30); Chloride 103 mmol/L (98-107); Estimated Creatinine Clearance 101 ml/min; Glucose 142 mg/dl (70-99); Potassium 4.1 mmol/L (3.5-5.1); Sodium 138 mmol/L (135-145); Total Bilirubin 0.6 mg/dl (0.2-1.3); Total Protein 6.3 g/dl (6.3-8.2); eGFR > 60.00
--- NOTE | 2024-09-04 07:34 | W.PN.VS ---
Today's Communication / Plan
-
Discussed with Dr. Klukarni
Assessment/Plan
-
POD 1 Balloon angioplasty with drug-coated balloon of severe behind the knee popliteal artery stenosis with Bard Lutonix 5 mm x 6 cm drug-coated balloon.
Attempted recanalization of occluded distal posterior tibial artery.
Balloon angioplasty of dissection and left posterior tibial artery.
Left femoral angiogram and Perclose percutaneous suture closure left common femoral artery.
Plan:
-Groin site stable, out of bed/ambulate
-Continue local wound care
-Repeat ABIs today
-Vein mapping ultrasound
-Dr. Kulkarni to follow-up with patient when studies complete for surgical plan
Subjective Data
-
Date of Service: September 04, 2024
Patient seen at bedside this a.m. Patient offers no complaints at this time. No events overnight. Groin site stable.
Objective Data
-
Vital Signs
Temp Pulse Resp BP Pulse Ox
98.6 F 79 16 132/75 97
09/04/24 03:30 09/04/24 03:30 09/04/24 03:30 09/04/24 03:30 09/04/24 03:30
Intake and Output
09/03/24 09/04/24 09/05/24
06:59 06:59 06:59
Intake Total 490 / 490 730 / 730
Output Total 150 / 150
Balance 490 / 490 580 / 580
Intake:
Oral fluids 240 / 240 580 / 580
IV fluids (Total) 100 / 100
nss 100 / 100
IV piggybacks 250 / 250 50 / 50
Output:
Urine, Voided 150 / 150
Other:
Number of approximated MODERATE 1 2
amounts of urine
Lab Results
09/04/24 06:02
09/04/24 06:02
Calcium 8.9 mg/dl (8.4-10.2) 09/04/24 06:02
Total Bilirubin 0.6 mg/dl (0.2-1.3) 09/04/24 06:02
AST 21 U/L (17-59) 09/04/24 06:02
ALT 33 U/L (0-50) 09/04/24 06:02
Alkaline Phosphatase 77 U/L (38-126) 09/04/24 06:02
Total Protein 6.3 g/dl (6.3-8.2) 09/04/24 06:02
Albumin 3.7 g/dl (3.5-5.0) 09/04/24 06:02
Physical Exam
-
AAOx3
No tachypnea on room air
No tachycardia
Abdomen soft
Left groin site clean, dry, intact, soft, flat
Bilateral feet warm and pink
+ Doppler signals bilaterally
[2024-09-04 07:35] VITALS: BP 145/81
[2024-09-04 07:47] LABS: Glucose - Point of Care 150 mg/dl (70-99)
[2024-09-04] MEDS: FARXIGA 10 MG PO (09:47)
[2024-09-04] MEDS: LYRICA 100 MG PO ×3 (09:47→23:20)
[2024-09-04] MEDS: ZESTRIL 20 MG PO (09:47)
[2024-09-04] MEDS: ZETIA 10 MG PO (09:47)
[2024-09-04] MEDS: PLAVIX 75 MG PO (09:47)
[2024-09-04] MEDS: LOW STRENGTH ASPIRIN 81 MG PO (09:48)
[2024-09-04] MEDS: CRESTOR 40 MG PO (09:48)
[2024-09-04] MEDS: TYLENOL 650 MG PO ×2 (09:52→17:46)
[2024-09-04] MEDS: NOVOLOG FLEXPEN-LOW RESISTANCE 1 UNITS SC ×2 (09:57→18:46)
[2024-09-04 10:44] VITALS: BP 174/88
[2024-09-04 11:33] LABS: Glucose - Point of Care 128 mg/dl (70-99)
--- NOTE | 2024-09-04 11:39 | CM ---
Post balloon angioplasty.
Follow podiatry for right foot wound.
Continue IV antibiotics.
Lives with and dgt .
CM will continue to assess and assist with dc planning.
PLAN Home with possible VN
--- NOTE | 2024-09-04 11:53 | W.PN.HOSP.TC ---
Today's Communication/Plan
-
further mgmt by podiatry/vasclar
cont Unasyn
Assessment / Plan
Assessment / Plan
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 Managed for diabetic wound. MRI showed no definite signs of OM. US arterial of LE was concerning for significant PAD, patient had angio with revasc on
09/03/24
A/P:
#R 4th digit wound
elevated ESR/CRP - follow on Abx for improvement
MRI R foot
Podiatry consult
ID consult
Bcx NTD
VAnco/Zosyn switched to Unasyn since MRSA screen neg
#Chronic limb threatening ischemia right lower extremity
s/p revasc by VascSx on 09/03/24
cont DAPT
unfortunately poor reconstitution of flow
#DM type 2 with neuropathy
Insulin SS, AccuCheck and DM diet
#HLD
#Essential HTN
Cont home meds
DVT ppx lovenox
Full code
I have spent at least 38min reviewing chart, test results, communication with consultants and direct patient care
Anticipated Discharge: > 48 hours
Subjective/Interval History
-
Date of Service: September 04, 2024
Objective Data
-
Labs:
Laboratory Results
09/04/24
06:02
WBC 11.0 H
Hgb 10.7 L
Hct 31.6 L
Plt Count 324
Sodium 138
Potassium 4.1
Chloride 103
Carbon Dioxide 27
BUN 21 H
Creatinine 0.8
Glucose 142 H
Calcium 8.9
Total Bilirubin 0.6
AST 21
ALT 33
Alkaline Phosphatase 77
Vital Signs:
Vital Signs
Temp Pulse Resp BP Pulse Ox
98.0 F 84 17 174/88 100
09/04/24 10:44 09/04/24 10:44 09/04/24 10:44 09/04/24 10:44 09/04/24 10:44
I&O
09/03/24 09/04/24 09/05/24
06:59 06:59 06:59
Intake Total 490 / 490 730 / 730
Output Total 150 / 150
Balance 490 / 490 580 / 580
Review of Systems
-
History Source: Patient
All other systems: Reviewed and negative
Physical Exam
-
General: Comfortable
HEENT: Normocephalic
GI: Soft, Nontender and Nondistended
Musculoskeletal: No Clubbing, No Cyanosis and No Edema
Skin: Warm and Other (redness improved on R foot)
--- NOTE | 2024-09-04 13:08 | W.PN.UPDATE ---
Update Note
Progress Note Update
Patient seen and evaluated. No new complaints. Left groin puncture site flat. Right foot warm, weakly palpable DP stable. Fourth toe wound stable. Noninvasive studies reviewed. JAVI remains within normal limits. Toe pressure (absolute toe
pressure) minimally increased to 77 mm, but TBI actually slightly decreased to 0.44. Therefore this all suggests the small vessel disease likely is rate limiting here. The popliteal stenosis is improved based on ultrasound. There is an elevated
SFA velocity which was not seen on prior ultrasound and there was no manipulation of the SFA and therefore I am unclear as to why that is being seen on the current study. Regardless, at this point would favor podiatry going ahead with any
intervention if needed for the toe (toe amputation or debridement if needed) and then if not healing, I would pursue potentially a bypass to the plantar artery or alternatively a TADV (LimFlow) procedure. His vein mapping demonstrates that his
right sided vein is marginal for conduit for bypass. Therefore if we could avoid it would favor. If, however, no podiatric intervention is being recommended at this time, and conservative management of the wound is entertained, then would keep a
close eye in the outpatient setting. And if wound not healing or regressing, then I would pursue the above treatment potential plans. Discussed with Dr. Hurst from podiatry as well. And discussed with patient and his at the bedside.
--- NOTE | 2024-09-04 13:20 | W.PN.POD ---
Today's Communication
Today's Communication
Right 4th toe eschar
Assessment / Plan
-
Right 4th toe eschar with cellulitis/Chronic limb threatening ischemia -
S/P angioplasty
Type 2 Diabetes Mellitus with neuropathy
MRI reviewed and discussed at bedside with the patient and his . Given that his MRI is negative fro osteomyelitis, he wishes to pursue conservative measures and allow for potential wound healing following angioplasty. He is aware that if the
wound progresses or does not heal, he will require toe amputation. I spoke extensively with Dr. Kulkarni regarding healing potential as well as further revascularization options should they be necessary. I recommend santyl ointment and gauze to the
site daily. He should follow closely with myself and vascular in the outpatient setting for monitoring of the wound. He may be weightbearing as tolerated in a surgical shoe. Continue IV Unasyn, po antibiotics upon discharge per ID recommendation.
Subjective
Chief Complaint
Right foot ulcer/ischemia
Subjective
Patient seen at bedside awake and conversational
Objective
Temp Pulse Resp BP Pulse Ox
98.0 F 84 17 174/88 100
09/04/24 10:44 09/04/24 10:44 09/04/24 10:44 09/04/24 10:44 09/04/24 10:44
09/04/24 06:02
09/04/24 06:02
Vital Signs and Lab results were reviewed.
Physical Exam
Physical Exam
Right foot with palpable pulses, foot warm to touch,there is a dark eschar on the lateral aspect of the 4th digit that measures 1.2 cm in diameter. No purulence, no fluctuance. No tunneling, undermining probing or sinus tract formation. Minimal
serous drainage from the edges. There is erythema extending from the toe to the dorsal midfoot (improvement since onset)
--- NOTE | 2024-09-04 15:16 | PTCARENOTE ---
patient medicated with PRN Tylenol for c/o headache this am with good relief, tolerating diet, independent to BR, left toe dressing c/d/i, vss, will continue to monitor.
[2024-09-04 15:22] VITALS: BP 133/76
[2024-09-04 16:35] LABS: Glucose - Point of Care 160 mg/dl (70-99)
[2024-09-04] MEDS: LOVENOX 40 MG SC (17:38)
--- NOTE | 2024-09-04 19:23 | W.PN.ID1 ---
Date of Service
Date of Service: September 04, 2024
Today's Communication
- continue unasyn for today, switch to augmentin tomorrow to complete a 14 day course
- follow up with podiatry
Assessment / Plan
Ischemic/Diabetic Foot Infection
DM2 - controlled
History of smoking
- blood cultures x2 in progress
- s/p revascularization
- MRI no definite osteomyelitis
- continue unasyn for today, switch to augmentin tomorrow to complete a 14 day course
- follow up with podiatry
Chief Complaint
-: Other (diabetic foot infection)
Subjective / Review of Systems
afebrile
bp stable
tolerating current therapies
Vital Signs / Physical Exam
Vital Signs
Vital Signs
Temp Pulse Resp BP Pulse Ox
98.6 F 81 16 133/76 98
09/04/24 15:22 09/04/24 15:22 09/04/24 15:22 09/04/24 15:22 09/04/24 15:22
Physical Exam
Constitutional: No Acute Distress
Cardiovascular: Regular Rate and S1/S2; Negative Murmur or Rub
Pulmonary: Clear and Symmetric; Negative Wheezes or Rales
Gastrointestinal: Soft, Non Tender, Non Distended and Normal Bowel Sounds
Skin: Warm and Dry; Negative Rash or Jaundice
Wound: Other (right 4th toe with eschar, surrounding erythema, mild warmth; midfoot mild warmth)
Objective Data
Lab Data
Lab Results
09/04/24 06:02
09/04/24 06:02
ESR 57 mm/hour (0-20) H 09/01/24 16:59
PT 13.3 Sec (11.4-14.6) 09/03/24 06:16
INR 0.96 09/03/24 06:16
APTT 41.7 Sec (23.4-35.0) H 09/03/24 06:16
Estimated Creat Clear 101 ml/min 09/04/24 06:02
Total Bilirubin 0.6 mg/dl (0.2-1.3) 09/04/24 06:02
AST 21 U/L (17-59) 09/04/24 06:02
ALT 33 U/L (0-50) 09/04/24 06:02
Alkaline Phosphatase 77 U/L (38-126) 09/04/24 06:02
C-Reactive Protein 134.40 mg/L (0.0-10.00) H 09/01/24 16:59
Most recent labs reviewed.
Micro Results:
09/01/24 19:27 Blood Culture - Preliminary
Blood/Venous No Growth in 48 hours- Final report to follow
09/01/24 19:27 Blood Culture - Preliminary
Blood/Venous No Growth in 48 hours- Final report to follow
09/01/24 22:07 MRSA Screen - Final
Nose No Methicillin Resistant Staphylococcus aureus isolated.
Care Review
Plan reviewed with: Physician (Dr Hurst - follow up)
[2024-09-04 21:18] LABS: Glucose - Point of Care 140 mg/dl (70-99)
[2024-09-04 23:00] VITALS: BP 137/74
[2024-09-04] MEDS: ELAVIL 30 MG PO (23:21)
[2024-09-05] MEDS: TYLENOL 650 MG PO ×2 (00:27→09:30)
[2024-09-05 07:19] VITALS: BP 161/91
[2024-09-05 08:41] LABS: Glucose - Point of Care 116 mg/dl (70-99)
[2024-09-05] MEDS: NOVOLOG FLEXPEN-LOW RESISTANCE SC (09:11)
[2024-09-05] MEDS: AUGMENTIN 875 MG/125 MG 1 TABLET PO (09:12)
[2024-09-05] MEDS: ZESTRIL 20 MG PO (09:12)
[2024-09-05] MEDS: ZETIA 10 MG PO (09:12)
[2024-09-05] MEDS: FARXIGA 10 MG PO (09:12)
[2024-09-05] MEDS: PLAVIX 75 MG PO (09:12)
[2024-09-05] MEDS: SANTYL OINTMENT 1 APPLIC TOPICAL (09:12)
[2024-09-05] MEDS: LOW STRENGTH ASPIRIN 81 MG PO (09:12)
[2024-09-05] MEDS: CRESTOR 40 MG PO (09:12)
[2024-09-05] MEDS: LYRICA 100 MG PO (09:12)
[2024-09-05 11:50] LABS: Glucose - Point of Care 206 mg/dl (70-99)
--- NOTE | 2024-09-05 12:17 | W.PN.HOSP.TC ---
Today's Communication/Plan
-
dc
Assessment / Plan
Assessment / Plan
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 Managed for diabetic wound. MRI showed no definite signs of OM. US arterial of LE was concerning for significant PAD, patient had angio with revasc on
09/03/24. Podiatry elected conservative mgmt and as per ID reccomendations - complete Augmentin course for total of 14 days. Medically stable for d/c home.
A/P:
#R 4th digit wound
elevated ESR/CRP - follow on Abx for improvement
MRI R foot
Podiatry consult
ID consult
Bcx NTD
VAnco/Zosyn switched to Unasyn since MRSA screen neg
#Chronic limb threatening ischemia right lower extremity
s/p revasc by VascSx on 09/03/24
cont DAPT
unfortunately poor reconstitution of flow
#DM type 2 with neuropathy
Insulin SS, AccuCheck and DM diet
#HLD
#Essential HTN
Cont home meds
DVT ppx lovenox
Full code
I have spent at least 38min reviewing chart, test results, communication with consultants and direct patient care
Anticipated Discharge: Today
Subjective/Interval History
-
Date of Service: September 05, 2024
Objective Data
-
Vital Signs:
Vital Signs
Temp Pulse Resp BP Pulse Ox
98.1 F 81 17 161/91 98
09/05/24 07:19 09/05/24 07:19 09/05/24 07:19 09/05/24 07:19 09/05/24 07:19
I&O
09/04/24 09/05/24 09/06/24
06:59 06:59 06:59
Intake Total 730 / 730 1080 / 1080
Output Total 150 / 150
Balance 580 / 580 1080 / 1080
Review of Systems
-
History Source: Patient
All other systems: Reviewed and negative
Physical Exam
-
General: No Apparent Distress
HEENT: Normocephalic
Cardiac: Regular Rhythm
GI: Soft, Nontender and Nondistended
Musculoskeletal: No Clubbing, No Cyanosis and No Edema
Neuro: Awake, Alert, Oriented and AO x 3
Psych: Calm
--- NOTE | 2024-09-05 12:22 | W.DCSUMMARY ---
Discharge Summary
Discharge Data
Date of Admission: 09/01/24
Date of Discharge: 09/05/24
-
Pending Results: No
Hospital Course
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 Managed for diabetic wound. MRI showed no definite signs of OM. US arterial of LE was concerning for significant PAD, patient had angio with revasc on
09/03/24. Podiatry elected conservative mgmt and as per ID recommendations - complete Augmentin course for total of 14 days. Medically stable for d/c home.
I have spent at least 38min reviewing chart, test results, communication with consultants and direct patient care
Patient was managed for:
#R 4th digit wound
#Chronic limb threatening ischemia right lower extremity
#DM type 2 with neuropathy
#HLD
#Essential HTN
DVT ppx lovenox
Full code
Discharge Plan
-
Patient Disposition: Home (Routine Discharge)
Discharge Diagnosis/Procedures: R 4th toe diabetic wound
Diet: Diabetic, Carb Controlled
Activity: As tolerated
Driving Restrictions: As prior to admission
Activity Restrictions/Additional Instructions:
weightbearing as tolerated in a surgical shoe
Referrals:
Marilin Hurst DPM [Active] - in one week
Dilcia Willoughby PA-C [Specified Professional Personl] - 09/18/24 10:30 am (Vascular surgery office follow up)
Salvador Paz DO [Family Provider] -
Prescriptions:
New
amoxicillin-pot clavulanate 875-125 mg tablet
1 tab PO Q12H Qty: 20 0RF
clopidogrel 75 mg Tablet
75 mg PO DAILY Qty: 30 0RF
aspirin 81 mg Tablet,Chewable
81 mg PO DAILY Qty: 30 0RF
Continued
ezetimibe 10 mg Tablet
10 mg PO DAILY
rosuvastatin 40 mg Tablet
40 mg PO QPM
pregabalin 100 mg Capsule
100 mg PO TID
Rx Instructions:
09/04/24: filled #90 pregabalin 100mg caps/30 day supply on 08/17/24 [facility]
Jardiance 25 mg Tablet
25 mg PO DAILY
Mounjaro 7.5 mg/0.5 mL Pen Injector
7.5 mg SC ASKEW
lisinopril 20 mg tablet
20 mg PO DAILY
amitriptyline 10 mg tablet
30 mg PO HS
Excedrin Tension Headache 500-65 mg Tablet
2 tab PO TID
Discharge Orders:
Discharge Patient (As Directed); Ordered 09/05/24
Ordered By: Rolando Lee
Discharge Date and Time
Print Language: BHUTANESE
[2024-09-05 13:37] VITALS: BP 152/84
== END 2024-09-05 13:42 | disposition home or self-care (01) | DRG 253 ==
LOC: 3 WEST ACU 20:55
PROVIDERS: Nurse Practitioner; Nurse Practitioner Family; ADMITTING PHYSICIAN Internal Medicine; ATTENDING PHYSICIAN Internal Medicine; CONSULT PHYSICIAN Podiatrist; CONSULT PHYSICIAN Student in an Organized Health Care Education/Training Program; EMERGENCY PHYSICIAN Student in an Organized Health Care Education/Training Program; FAMILY PHYSICIAN Family Medicine; OTHER PHYSICIAN Surgery Vascular Surgery
PROC: B41C1ZZ Fluoroscopy of Pelvic Arteries using Low Osmolar Contrast (ICD-10-PCS; 2024-09-01)
PROC: 047M3Z1 Dilation of Right Popliteal Artery using Drug-Coated Balloon, Percutaneous Approach (ICD-10-PCS; 2024-09-01)
PROC: 047R3ZZ Dilation of Right Posterior Tibial Artery, Percutaneous Approach (ICD-10-PCS; 2024-09-01)
PROC: B41G1ZZ Fluoroscopy of Left Lower Extremity Arteries using Low Osmolar Contrast (ICD-10-PCS; 2024-09-01)
PROC: B4101ZZ Fluoroscopy of Abdominal Aorta using Low Osmolar Contrast (ICD-10-PCS; 2024-09-01)
DX: E11.52 Type 2 diabetes mellitus with diabetic peripheral angiopathy with gangrene (principal); I70.261 Atherosclerosis of native arteries of extremities with gangrene, right leg; L53.9 Erythematous condition, unspecified; I10 Essential (primary) hypertension; E78.00 Pure hypercholesterolemia, unspecified; L97.519 Non-pressure chronic ulcer of other part of right foot with unspecified severity; E11.40 Type 2 diabetes mellitus with diabetic neuropathy, unspecified; E11.42 Type 2 diabetes mellitus with diabetic polyneuropathy; K21.9 Gastro-esophageal reflux disease without esophagitis; M19.071 Primary osteoarthritis, right ankle and foot; M77.31 Calcaneal spur, right foot; L03.031 Cellulitis of right toe; Z87.891 Personal history of nicotine dependence; Z79.4 Long term (current) use of insulin; Z79.84 Long term (current) use of oral hypoglycemic drugs
CPT/HCPCS: 37224; 37228; 73630; 73720; 75625; 75716; 80048; 80053; 80202; 82962; 83036; 85025; 85027; 85610; 85652; 85730; 86140; 87040; 87070; 93922; 93925; 93970; 96365; 99285; A9575; C1725; C1760; C1769; C1887; C1894; C2623; Q9967

== ENCOUNTER 2024-11-03 06:22 | Day surgery (SDC) | payer BC, SELFPAY ==
[2024-11-03] VITALS (7 sets, daily range): BP systolic 86–159; BP diastolic 48–87; BMI 21.6
[2024-11-03] MEDS: NORMOSOL-R/PLASMALYTE-A 1000 IV (09:24)
[2024-11-03 09:25] LABS: Glucose - Point of Care 100 mg/dl (70-99)
[2024-11-03 09:35] LABS: Hematocrit 36.5 % (39.0-52.0); Hemoglobin 12.1 g/dL (13.0-18.0); Mean Corp Hgb Conc. 33.2 g/dL (33.0-37.0); Mean Corpuscular Hgb 30.6 pg (27.0-31.0); Mean Corpuscular Volume 92.2 fL (80.0-94.0); Mean Platelet Volume 9.8 fL (7.4-10.4); Platelet Count 270 10^3/uL (130-400); Red Blood Cell Count 3.96 10^6/uL (4.70-6.10); Red Cell Dist. Width 13.1 % (11.5-14.5); White Blood Cell Count 5.3 10^3/uL (4.8-10.8)
--- NOTE | 2024-11-03 10:08 | PTCARENOTE ---
Dr. Hurst was made aware of patient's CBC results by RN.
== END 2024-11-03 12:18 | disposition home or self-care (01) ==
LOC: SDS 06:22
PROVIDERS: ATTENDING PHYSICIAN Podiatrist
DX: M86.171 Other acute osteomyelitis, right ankle and foot (principal)
CPT/HCPCS: 28820; 88305; 88311; 82962; 85027; 87070; 87075; 87077; 87147; 87185; 87186; 87205

== ENCOUNTER → 2025-04-16 13:41 | Outpatient (REF) | payer BC, SELFPAY | LOC: RAD 13:41 | PROVIDERS: ATTENDING PHYSICIAN Physician Assistant; FAMILY PHYSICIAN Family Medicine | DX: I77.9 Disorder of arteries and arterioles, unspecified (principal) | CPT/HCPCS: 93922; 93925 ==